=== PATIENT | female | born 1975 | race African-American/Black ===

== ENCOUNTER 2020-04-12 00:04 | Emergency (ER) | payer OTHER, SELFPAY ==
[2020-04-12] MEDS ORDERED: Fluorescein Opthalmic Strip ONE (00:24)
[2020-04-12] MEDS ORDERED: Proparacaine 0.5% Opth 15 ML BOT ONE (00:25)
== END 2020-04-12 01:05 | disposition home or self-care (01) ==
LOC: ERS 00:04
DX: S05.02XA Injury of conjunctiva and corneal abrasion without foreign body, left eye, initial encounter (principal); F41.9 Anxiety disorder, unspecified; I10 Essential (primary) hypertension; X58.XXXA Exposure to other specified factors, initial encounter
CPT/HCPCS: 99283